=== PATIENT | male | born 1940 | race Caucasian/White ===

== ENCOUNTER 2021-04-30 15:24 | Inpatient (IN) | payer BC, MEDICARE ==
[2021-04-30] MEDS ORDERED: Nitroglycerin 0.4 MG TAB (25 Tab Bottle) SL PRN (15:48)
[2021-04-30] MEDS ORDERED: Dextrose 50% Abboject 50 ML SYRINGE SLOW IVP PRN (15:51)
[2021-04-30] MEDS ORDERED: Insulin Regular 300 UNITS/3 ML VIAL SC PRN ×2 (15:51)
[2021-04-30] MEDS ORDERED: Dextrose 5% in Water 1,000 ML IV PRN (15:51)
[2021-04-30] MEDS ORDERED: Bisacodyl 10 MG SUPP PR PRN (15:53)
[2021-04-30] MEDS ORDERED: Calcium Carbonate 500 MG ChewTAB PO PRN (15:53)
[2021-04-30] MEDS ORDERED: Senokot S 8.6-50 MG TAB PO PRN (15:53)
[2021-04-30] MEDS ORDERED: Ondansetron ODT 4 MG TAB PO PRN (15:53)
[2021-04-30] MEDS ORDERED: Ondansetron PF 4 MG/2 ML Vial IVP PRN (15:53)
[2021-04-30] MEDS ORDERED: Acetaminophen 325 MG TAB PO PRN (15:53)
[2021-04-30] MEDS ORDERED: Morphine 4 MG/ML VIAL SLOW IVP PRN (16:03)
[2021-04-30] MEDS ORDERED: Aspirin 325 mg Enteric Coated Tablet PO SCH ×2 (16:30→21:00)
[2021-04-30 16:42] LABS: #Eosinphils 0.1 thou/uL (0.0-0.7); #Lymphocytes 1.5 thou/uL (1.20-3.40); #Monocytes 0.8 thou/uL (0.11-0.59); #Neutrophils 5.1 thou/uL (1.40-6.50); %Basophils 0.2 % (0.0-1.0); %Eosinophils 1.9 % (0.0-10.0); %Lymphocytes 20.3 % (21.0-51.0); %Monocytes 10.1 % (0.0-10.0); %Neutrophils 67.5 % (42.0-75.0); Hemoglobin 14.3 g/dL (14.0-18.0); Mean Corpuscular Hemoglobin 32.7 pg (27.0-31.0); Mean Corpuscular Volume 93.3 fL (78.0-98.0); Mean Platelet Volume 7.3 fL (7.4-10.4); Platelet Count 226 thou/uL (130-400); RBC Distribution Width 13.2 % (11.5-14.5); Red Blood Cell (RBC) Count 4.39 mill/uL (4.70-6.10); White Blood Cell (WBC) Count 7.6 thou/uL (4.8-10.8)
[2021-04-30] MEDS ORDERED: Communication Order-Pharmacy FS SCH (16:45)
[2021-04-30 17:01] LABS: ALT (SGPT) 8 U/L (8-55); AST (SGOT) 13 U/L (5-34); Alkaline Phosphatase 52 U/L (40-110); Anion Gap 14 mmol/L (10-20); BUN (Urea Nitrogen) 19 mg/dL (8.4-25.7); Bilirubin, Total 0.3 mg/dL (0.2-1.2); Calc. Creatinine Clearance 0 mL/min (70-130); Calcium 8.9 mg/dL (7.8-10.44); Carbon Dioxide 23 mmol/L (23-31); Chloride 105 mmol/L (98-107); Globulin 3.1 g/dL (2.4-3.5); Glucose 105 mg/dL (83-110); Magnesium 1.9 mg/dL (1.6-2.6); Potassium 4.4 mmol/L (3.5-5.1); Protein, Total 7.1 g/dL (5.8-8.1); Sodium 138 mmol/L (136-145)
[2021-04-30 17:05] LABS: Troponin I 0.032 ng/mL (< 0.028)
[2021-04-30] MEDS ORDERED: Magnesium Sulfate 2 GM in Sodium Chloride 0.9% 100 ML IVPB SCH (17:15)
[2021-04-30] MEDS ORDERED: Magnesium 2 GM/50 ML 2 GM in Premix Bag 1 BAG IVPB SCH (17:30)
[2021-04-30] MEDS ORDERED: Enoxaparin Sodium 120 MG/0.8 ML SYRINGE SC SCH (17:45)
[2021-04-30] MEDS: Nitroglycerin 2% Ointment 1 INCH/1 GM Packet TOP SCH ×2 (20:43→23:34)
[2021-04-30] MEDS: Atorvastatin Calcium 40 MG TAB PO SCH (20:48)
[2021-04-30] MEDS: Famotidine 20 MG TAB PO SCH (20:48)
[2021-05-01 05:01] LABS: #Eosinphils 0.2 thou/uL (0.0-0.7); #Monocytes 0.8 thou/uL (0.11-0.59); #Neutrophils 4.2 thou/uL (1.40-6.50); %Basophils 0.6 % (0.0-1.0); %Eosinophils 2.6 % (0.0-10.0); %Monocytes 11.3 % (0.0-10.0); %Neutrophils 57.5 % (42.0-75.0); Hemoglobin 13.7 g/dL (14.0-18.0); Mean Corpuscular HGB CONC 34.2 g/dL (32.0-36.0); Mean Corpuscular Hemoglobin 32.3 pg (27.0-31.0); Mean Corpuscular Volume 94.3 fL (78.0-98.0); Mean Platelet Volume 7.4 fL (7.4-10.4); Platelet Count 211 thou/uL (130-400); RBC Distribution Width 13.2 % (11.5-14.5); Red Blood Cell (RBC) Count 4.24 mill/uL (4.70-6.10); White Blood Cell (WBC) Count 7.3 thou/uL (4.8-10.8)
[2021-05-01 05:23] LABS: Anion Gap 14 mmol/L (10-20); BUN (Urea Nitrogen) 20 mg/dL (8.4-25.7); Calc. Creatinine Clearance 105 mL/min (70-130); Calcium 8.9 mg/dL (7.8-10.44); Carbon Dioxide 24 mmol/L (23-31); Cardiac Risk 4.8 (Less than 4.5); Chloride 105 mmol/L (98-107); Cholesterol 162 mg/dl (< 200 Desired); Glucose 111 mg/dL (83-110); HDL Cholesterol 34 mg/dL (>60 Neg Risk); Potassium 4.2 mmol/L (3.5-5.1); Sodium 139 mmol/L (136-145)
[2021-05-01 05:34] LABS: LDL Cholesterol, Calculated 76 mg/dL
[2021-05-01] MEDS: Famotidine 20 MG TAB PO SCH (05:49)
[2021-05-01] MEDS: Nitroglycerin 2% Ointment 1 INCH/1 GM Packet TOP SCH (05:50)
[2021-05-01 05:51] LABS: Triglycerides 238 mg/dL (Less than 150)
[2021-05-01] MEDS ORDERED: Lidocaine 1% (PF) 30 ML VIAL ONE (06:47)
[2021-05-01] MEDS ORDERED: Midazolam HCl 2 mg/2 ml Vial ONE (07:57)
[2021-05-01] MEDS ORDERED: Fentanyl 100 MCG/2 ML VIAL ONE (07:57)
[2021-05-01] MEDS ORDERED: Fentanyl 250 MCG/5 ML VIAL ONE (08:27)
[2021-05-01] MEDS ORDERED: Midazolam HCl 5 mg/5 ml Vial ONE (08:27)
[2021-05-01] MEDS ORDERED: Ketamine 50 MG/ML (10ML VIAL) ONE (08:45)
[2021-05-01] MEDS ORDERED: PROPOFOL 200 MG/20 ML VIAL ONE (09:00)
[2021-05-01] MEDS ORDERED: Sodium Bicarb 50 MEQ/50 ML VIAL ONE (09:00)
[2021-05-01] MEDS ORDERED: Calcium Chloride 1 GM/10 ML Abboject SYRINGE ONE ×2 (09:00→09:16)
[2021-05-01] MEDS ORDERED: Cardioplegic Soln 1,000 ML BAG ONE ×2 (09:00→09:16)
[2021-05-01] MEDS ORDERED: Labetalol HCl 100 MG/20 ML VIAL ONE (09:00)
[2021-05-01] MEDS ORDERED: Ondansetron PF 4 MG/2 ML Vial ONE (09:00)
[2021-05-01] MEDS ORDERED: Papaverine 60 MG/2 ML VIAL ONE ×2 (09:00→09:16)
[2021-05-01] MEDS ORDERED: Thrombin 5000 UNITS/5 ML VIAL ONE ×2 (09:00→09:16)
[2021-05-01] MEDS ORDERED: Aspirin 325 mg Enteric Coated Tablet PO SCH (09:00)
[2021-05-01] MEDS ORDERED: Heparin 5,000 UNITS/ML VIAL ONE ×2 (09:00→09:16)
[2021-05-01] MEDS ORDERED: Heparin 10,000 UNITS/ 10 ML VIAL ONE (09:00)
[2021-05-01] MEDS ORDERED: Aminocaproic Acid 5 GM/20 ML VIAL ONE ×2 (09:00→09:16)
[2021-05-01] MEDS ORDERED: Vecuronium 10 MG VIAL ONE (09:00)
[2021-05-01 09:04] LABS: Hemoglobin A1c 6.1 % (4.0-6.0)
[2021-05-01] MEDS ORDERED: Sodium Bicarb 50 MEQ/50 ML Abboject 8.4% SYRINGE ONE (09:16)
[2021-05-01] MEDS ORDERED: Heparin 30,000 units/30 ml VIAL ONE (09:16)
[2021-05-01] MEDS ORDERED: Lidocaine 2% PF 100 mg/5 ml Syringe ONE (09:16)
[2021-05-01] MEDS ORDERED: Protamine Sulfate 250 MG/25 ML VIAL ONE (09:16)
[2021-05-01] MEDS ORDERED: Magnesium Sulfate 1 GM/2 ML VIAL ONE (09:16)
[2021-05-01] MEDS ORDERED: Potassium Chloride 60 MEQ/30 ML VIAL ONE (09:16)
[2021-05-01] MEDS ORDERED: Phenylephrine 10 MG/ML VIAL ONE (10:38)
[2021-05-01] MEDS ORDERED: PHENYLEPHRINE-NS 100 MCG/ML 10 ML SYRINGE ONE (10:39)
[2021-05-01 11:28] LABS: SARS-CoV-2 PCR by NAA Not Detected (NotDetected)
[2021-05-01] MEDS ORDERED: Insulin Regular 300 UNITS/3 ML VIAL ONE (11:33)
[2021-05-01 13:24] LABS: Actual Bicarbonate (HCO3a) 24.2 mEq/L (22-28); Base Excess (BEa) -2.1 mEq/L (-2.0 to +3.0); CO2 Tension 47.8 mmHg (35.0-45.0); Calcium, Ionized (arterial) 1.11 mmol/L (1.12-1.30); Carboxyhemoglobin (COHb) 0.8 gm% (0.0-3.0); Hemoglobin (Hb) 12.6 g/dL (14.0-18.0); O2 Tension (PaO2), arterial 105.9 mmHg (> 60.0); Potassium - ABG Lab 4.23 mmol/L (3.70-5.30); pH, Arterial 7.32 (7.35-7.45)
[2021-05-01 13:26] LABS: Puncture Site Arterial Line
[2021-05-01] MEDS ORDERED: Ondansetron PF 4 MG/2 ML Vial IVP PRN (13:31)
[2021-05-01] MEDS ORDERED: Fentanyl 100 MCG/2 ML VIAL SLOW IVP PRN (13:31)
[2021-05-01] MEDS ORDERED: Guaifenesin DM 100-10/5 ML UDCUP PO PRN (13:31)
[2021-05-01] MEDS ORDERED: Nitroglycerin 50 MG/250 ML BOT 250 ML IVPB PRN (13:31)
[2021-05-01] MEDS ORDERED: hydrALAZINE 20 MG/ML VIAL SLOW IVP PRN (13:31)
[2021-05-01] MEDS ORDERED: Acetaminophen 325 MG TAB PO PRN (13:31)
[2021-05-01] MEDS ORDERED: Post-Op Insulin Drip Protocol IVPB ONE (13:31)
[2021-05-01] MEDS ORDERED: niCARdipine 25 MG in Sodium Chloride 0.9% 250 ML 250 ML IVPB PRN (13:31)
[2021-05-01] MEDS ORDERED: Potassium Chloride 20 MEQ/100 ML PREMIX BAG IVPB PRN (13:31)
[2021-05-01] MEDS ORDERED: Hetastarch 6% 500 ML 500 ML IVPB PRN (13:31)
[2021-05-01] MEDS ORDERED: Norepinephrine 8 MG/0.9% NS 250 ML IVPB PRN (13:31)
[2021-05-01] MEDS ORDERED: Promethazine HCl 25 MG/ML VIAL IM PRN (13:31)
[2021-05-01] MEDS ORDERED: DOPamine 400 MG/D5W 250 ML 250 ML IVPB PRN (13:31)
[2021-05-01] MEDS ORDERED: Bisacodyl 10 MG SUPP PR PRN (13:31)
[2021-05-01] MEDS ORDERED: Mag-Al 1200 mg/1200 mg/30 ML UDCUP PO PRN (13:31)
[2021-05-01] MEDS ORDERED: Albumin 5% 250 ML ONE (13:36)
[2021-05-01 13:44] LABS: #Eosinphils 0.1 thou/uL (0.0-0.7); #Lymphocytes 1.7 thou/uL (1.20-3.40); #Monocytes 1.5 thou/uL (0.11-0.59); #Neutrophils 12.3 thou/uL (1.40-6.50); %Basophils 0.2 % (0.0-1.0); %Eosinophils 0.9 % (0.0-10.0); %Lymphocytes 11.1 % (21.0-51.0); %Monocytes 9.7 % (0.0-10.0); %Neutrophils 78.2 % (42.0-75.0); Hemoglobin 12.8 g/dL (14.0-18.0); Mean Corpuscular HGB CONC 33.7 g/dL (32.0-36.0); Mean Corpuscular Hemoglobin 31.9 pg (27.0-31.0); Mean Corpuscular Volume 94.8 fL (78.0-98.0); Mean Platelet Volume 7.3 fL (7.4-10.4); Platelet Count 190 thou/uL (130-400); RBC Distribution Width 13.3 % (11.5-14.5); White Blood Cell (WBC) Count 15.7 thou/uL (4.8-10.8)
[2021-05-01] MEDS ORDERED: HUMULIN R 100 UNITS in Sodium Chloride 0.9% 100 ML IVPB SCH (13:45)
[2021-05-01] MEDS ORDERED: Dextrose 5% in Water 1,000 ML IV PRN (13:45)
[2021-05-01] MEDS ORDERED: Dextrose 50% Abboject 50 ML SYRINGE SLOW IVP PRN (13:45)
[2021-05-01] MEDS ORDERED: Morphine 4 MG/ML VIAL SLOW IVP PRN (13:49)
[2021-05-01 13:55] LABS: INR-International Normal Ratio 1.2; PTT 29.7 sec (22.9-36.1); Prothrombin Time 15.3 sec (12.0-14.7)
[2021-05-01 14:07] LABS: Anion Gap 14 mmol/L (10-20); BUN (Urea Nitrogen) 16 mg/dL (8.4-25.7); Calc. Creatinine Clearance 116 mL/min (70-130); Calcium 8.2 mg/dL (7.8-10.44); Carbon Dioxide 22 mmol/L (23-31); Chloride 107 mmol/L (98-107); Glucose 125 mg/dL (83-110); Potassium 4.7 mmol/L (3.5-5.1); Sodium 138 mmol/L (136-145)
[2021-05-01] MEDS: Lactated Ringer's 1,000 ML IV SCH ×2 (14:54→23:59)
[2021-05-01 15:16] LABS: Actual Bicarbonate (HCO3a) 24.7 mEq/L (22-28); Base Excess (BEa) -2.3 mEq/L (-2.0 to +3.0); CO2 Tension 51.3 mmHg (35.0-45.0); Calcium, Ionized (arterial) 1.15 mmol/L (1.12-1.30); Carboxyhemoglobin (COHb) 0.6 gm% (0.0-3.0); Hemoglobin (Hb) 13.6 g/dL (14.0-18.0); O2 Tension (PaO2), arterial 121.4 mmHg (> 60.0); Potassium - ABG Lab 4.27 mmol/L (3.70-5.30)
[2021-05-01 15:18] LABS: ALV-art Gradient 99.675 mmHg (0-20); Puncture Site Arterial Line
[2021-05-01] MEDS: Fentanyl 100 MCG/2 ML VIAL SLOW IVP PRN (17:29)
[2021-05-01] MEDS: ceFAZolin Sodium/D5W 2 GM in Premix Bag 1 BAG IVPB SCH (18:27)
[2021-05-01 19:28] LABS: Hemoglobin 12.7 g/dL (14.0-18.0)
[2021-05-01 19:42] LABS: Potassium 4.9 mmol/L (3.5-5.1)
[2021-05-01] MEDS: Atorvastatin Calcium 40 MG TAB PO SCH (20:44)
[2021-05-01] MEDS: Famotidine/PF 20 mg/2ml Vial SLOW IVP SCH (20:44)
[2021-05-01] MEDS: HYDROcodone/Acetaminophen 5/325 mg Tablet PO PRN (20:45)
[2021-05-01] MEDS: Insulin Regular 300 UNITS/3 ML VIAL SC PRN (23:58)
[2021-05-02 04:12] LABS: #Lymphocytes 1.4 thou/uL (1.20-3.40); #Monocytes 1.4 thou/uL (0.11-0.59); #Neutrophils 8.5 thou/uL (1.40-6.50); %Basophils 0.4 % (0.0-1.0); %Eosinophils 0.1 % (0.0-10.0); %Lymphocytes 12.2 % (21.0-51.0); %Monocytes 12.7 % (0.0-10.0); %Neutrophils 74.5 % (42.0-75.0); Hemoglobin 12.6 g/dL (14.0-18.0); Mean Corpuscular HGB CONC 33.2 g/dL (32.0-36.0); Mean Corpuscular Hemoglobin 31.9 pg (27.0-31.0); Mean Corpuscular Volume 96.2 fL (78.0-98.0); Mean Platelet Volume 7.3 fL (7.4-10.4); Platelet Count 193 thou/uL (130-400); RBC Distribution Width 13.5 % (11.5-14.5); Red Blood Cell (RBC) Count 3.94 mill/uL (4.70-6.10); White Blood Cell (WBC) Count 11.3 thou/uL (4.8-10.8)
[2021-05-02 04:31] LABS: Anion Gap 10 mmol/L (10-20); BUN (Urea Nitrogen) 13 mg/dL (8.4-25.7); Calc. Creatinine Clearance 120 mL/min (70-130); Calcium 8.1 mg/dL (7.8-10.44); Carbon Dioxide 28 mmol/L (23-31); Chloride 104 mmol/L (98-107); Glucose 140 mg/dL (83-110); Potassium 4.5 mmol/L (3.5-5.1); Sodium 137 mmol/L (136-145)
[2021-05-02] MEDS: Insulin Regular 300 UNITS/3 ML VIAL SC PRN (04:41)
[2021-05-02] MEDS: Fentanyl 100 MCG/2 ML VIAL SLOW IVP PRN (04:43)
[2021-05-02] MEDS ORDERED: Dextrose 50% Abboject 50 ML SYRINGE SLOW IVP PRN (08:28)
[2021-05-02] MEDS ORDERED: HumaLOG 300 UNITS/3 ML VIAL SC PRN (08:28)
[2021-05-02] MEDS ORDERED: Dextrose 5% in Water 1,000 ML IV PRN (08:28)
[2021-05-02] MEDS: Aspirin 325 MG TAB PO SCH (09:43)
[2021-05-02] MEDS: Famotidine/PF 20 mg/2ml Vial SLOW IVP SCH ×2 (09:43→20:53)
[2021-05-02] MEDS: ceFAZolin Sodium/D5W 2 GM in Premix Bag 1 BAG IVPB SCH ×2 (09:43)
[2021-05-02] MEDS: HYDROcodone/Acetaminophen 5/325 mg Tablet PO PRN ×4 (10:47→20:53)
[2021-05-02] MEDS: Enoxaparin Sodium 40 MG/0.4 ML SYRINGE SC SCH (20:53)
[2021-05-02] MEDS: Atorvastatin Calcium 40 MG TAB PO SCH (20:54)
[2021-05-03 04:30] LABS: #Eosinphils 0.1 thou/uL (0.0-0.7); #Lymphocytes 1.4 thou/uL (1.20-3.40); #Monocytes 1.5 thou/uL (0.11-0.59); %Basophils 0.1 % (0.0-1.0); %Eosinophils 0.6 % (0.0-10.0); %Lymphocytes 12.9 % (21.0-51.0); %Monocytes 13.3 % (0.0-10.0); %Neutrophils 73.2 % (42.0-75.0); Hemoglobin 11.3 g/dL (14.0-18.0); Mean Corpuscular Hemoglobin 31.6 pg (27.0-31.0); Mean Platelet Volume 8.2 fL (7.4-10.4); Platelet Count 162 thou/uL (130-400); RBC Distribution Width 13.5 % (11.5-14.5); Red Blood Cell (RBC) Count 3.57 mill/uL (4.70-6.10); White Blood Cell (WBC) Count 10.9 thou/uL (4.8-10.8)
[2021-05-03 04:57] LABS: Anion Gap 10 mmol/L (10-20); BUN (Urea Nitrogen) 11 mg/dL (8.4-25.7); Calc. Creatinine Clearance 133 mL/min (70-130); Calcium 8.4 mg/dL (7.8-10.44); Carbon Dioxide 28 mmol/L (23-31); Chloride 101 mmol/L (98-107); Glucose 124 mg/dL (83-110); Magnesium 1.8 mg/dL (1.6-2.6); Sodium 135 mmol/L (136-145)
[2021-05-03] MEDS ORDERED: Diltiazem 125 MG in Sodium Chloride 0.9% 100 ML IVPB SCH (07:30)
[2021-05-03] MEDS ORDERED: Digoxin 0.5 MG/2 ML AMP ONE (07:58)
[2021-05-03] MEDS ORDERED: Magnesium 2 GM/50 ML 2 GM in Premix Bag 1 BAG IVPB SCH (08:00)
[2021-05-03] MEDS: Aspirin 325 MG TAB PO SCH (08:06)
[2021-05-03] MEDS: Clopidogrel Bisulfate 75 MG TAB PO SCH (08:06)
[2021-05-03] MEDS ORDERED: Aspirin 325 MG TAB PO SCH (09:31)
[2021-05-03] MEDS ORDERED: Amiodarone 150 MG, Admixture Fee 1 EACH in Dextrose 5% in Water 100 ML IVPB SCH (10:00)
[2021-05-03] MEDS ORDERED: Aspirin Chewable 81 MG TAB PO SCH (10:00)
[2021-05-03] MEDS: Amiodarone 450 MG, Admixture Fee 1 EACH in Dextrose 5% in Water 250 ML IVPB SCH ×2 (10:52→21:23)
[2021-05-03] MEDS: HYDROcodone/Acetaminophen 5/325 mg Tablet PO PRN ×2 (12:24→17:51)
[2021-05-03] MEDS ORDERED: Metoprolol Tartrate 5 MG/5 ML VIAL IVP SCH (13:30)
[2021-05-03] MEDS ORDERED: Flecainide 50 MG TAB PO SCH (19:15)
[2021-05-03] MEDS: Atorvastatin Calcium 40 MG TAB PO SCH (21:23)
[2021-05-03] MEDS: Enoxaparin Sodium 40 MG/0.4 ML SYRINGE SC SCH (21:23)
[2021-05-04] MEDS: HYDROcodone/Acetaminophen 5/325 mg Tablet PO PRN ×3 (04:00→20:16)
[2021-05-04 04:19] LABS: #Eosinphils 0.2 thou/uL (0.0-0.7); #Lymphocytes 1.9 thou/uL (1.20-3.40); #Monocytes 1.5 thou/uL (0.11-0.59); #Neutrophils 7.8 thou/uL (1.40-6.50); %Basophils 0.4 % (0.0-1.0); %Eosinophils 1.7 % (0.0-10.0); %Lymphocytes 16.8 % (21.0-51.0); %Monocytes 12.9 % (0.0-10.0); %Neutrophils 68.2 % (42.0-75.0); Hemoglobin 11.6 g/dL (14.0-18.0); Mean Corpuscular HGB CONC 33.8 g/dL (32.0-36.0); Mean Corpuscular Hemoglobin 32.1 pg (27.0-31.0); Mean Corpuscular Volume 95.1 fL (78.0-98.0); Mean Platelet Volume 7.2 fL (7.4-10.4); Platelet Count 202 thou/uL (130-400); RBC Distribution Width 13.1 % (11.5-14.5); Red Blood Cell (RBC) Count 3.61 mill/uL (4.70-6.10); White Blood Cell (WBC) Count 11.5 thou/uL (4.8-10.8)
[2021-05-04 04:42] LABS: Anion Gap 11 mmol/L (10-20); BUN (Urea Nitrogen) 13 mg/dL (8.4-25.7); Calc. Creatinine Clearance 116 mL/min (70-130); Calcium 8.7 mg/dL (7.8-10.44); Carbon Dioxide 28 mmol/L (23-31); Chloride 99 mmol/L (98-107); Glucose 134 mg/dL (83-110); Potassium 3.9 mmol/L (3.5-5.1); Sodium 134 mmol/L (136-145)
[2021-05-04] MEDS: Amiodarone 450 MG, Admixture Fee 1 EACH in Dextrose 5% in Water 250 ML IVPB SCH ×2 (08:00→20:17)
[2021-05-04] MEDS ORDERED: Potassium Chloride 20 MEQ TAB PO SCH (08:30)
[2021-05-04] MEDS ORDERED: PROPOFOL 20 ML ONE (09:00)
[2021-05-04] MEDS ORDERED: PROPOFOL 200 MG/20 ML VIAL ONE (09:30)
[2021-05-04] MEDS ORDERED: Midazolam HCl 2 mg/2 ml Vial ONE (09:30)
[2021-05-04] MEDS: Aspirin Chewable 81 MG TAB PO SCH (10:52)
[2021-05-04] MEDS: Clopidogrel Bisulfate 75 MG TAB PO SCH (10:52)
[2021-05-04] MEDS: Famotidine/PF 20 mg/2ml Vial SLOW IVP SCH (10:55)
[2021-05-04] MEDS ORDERED: Nitroglycerin 0.4 MG TAB (25 Tab Bottle) SL PRN (18:43)
[2021-05-04] MEDS ORDERED: Dextrose 5% in Water 1,000 ML IV PRN (19:00)
[2021-05-04] MEDS ORDERED: Insulin Regular 300 UNITS/3 ML VIAL SC PRN (19:00)
[2021-05-04] MEDS ORDERED: Dextrose 50% Abboject 50 ML SYRINGE SLOW IVP PRN (19:00)
[2021-05-04] MEDS: Enoxaparin Sodium 40 MG/0.4 ML SYRINGE SC SCH (20:17)
[2021-05-04] MEDS: Atorvastatin Calcium 40 MG TAB PO SCH (20:17)
[2021-05-04] MEDS: Famotidine 20 MG TAB PO SCH (20:17)
[2021-05-05] MEDS: Bisacodyl 5 MG TAB PO PRN (08:11)
[2021-05-05] MEDS: Famotidine 20 MG TAB PO SCH ×2 (08:11→20:50)
[2021-05-05] MEDS: Aspirin Chewable 81 MG TAB PO SCH (08:11)
[2021-05-05] MEDS: Furosemide 40 MG TAB PO SCH (08:11)
[2021-05-05] MEDS: Clopidogrel Bisulfate 75 MG TAB PO SCH (08:11)
[2021-05-05] MEDS: Potassium Chloride 10 MEQ TAB PO SCH (08:12)
[2021-05-05] MEDS ORDERED: Amiodarone 200 MG TAB PO SCH (10:30)
[2021-05-05 12:53] LABS: Actual Bicarbonate (HCO3a) 22.5 mEq/L (22-28); Analyzer IN Cardio OR; Base Excess (BEa) -2.5 mEq/L (-2.0 to +3.0); CO2 Tension 39.8 mmHg (35.0-45.0); Calcium, Ionized (arterial) 1.16 mmol/L (1.12-1.30); Carboxyhemoglobin (COHb) 0.5 gm% (0.0-3.0); Hemoglobin (Hb) 12.2 g/dL (14.0-18.0); O2 Tension (PaO2), arterial 355.1 mmHg (> 60.0); Potassium - ABG Lab 4.62 mmol/L (3.70-5.30); pH, Arterial 7.37 (7.35-7.45)
[2021-05-05 12:54] LABS: Actual Bicarbonate (HCO3a) 24.4 mEq/L (22-28); Analyzer IN Cardio OR; Base Excess (BEa) -0.8 mEq/L (-2.0 to +3.0); CO2 Tension 42.4 mmHg (35.0-45.0); Carboxyhemoglobin (COHb) 0.3 gm% (0.0-3.0); Hemoglobin (Hb) 10.8 g/dL (14.0-18.0); O2 Tension (PaO2), arterial 277.3 mmHg (> 60.0); Potassium - ABG Lab 5.14 mmol/L (3.70-5.30); pH, Arterial 7.38 (7.35-7.45)
[2021-05-05 12:54] LABS: Actual Bicarbonate (HCO3a) 24.1 mEq/L (22-28); Analyzer IN Cardio OR; Base Excess (BEa) -0.8 mEq/L (-2.0 to +3.0); CO2 Tension 40.8 mmHg (35.0-45.0); Calcium, Ionized (arterial) 0.97 mmol/L (1.12-1.30); Carboxyhemoglobin (COHb) 0.8 gm% (0.0-3.0); O2 Tension (PaO2), arterial 401.5 mmHg (> 60.0); Potassium - ABG Lab 6.25 mmol/L (3.70-5.30); pH, Arterial 7.39 (7.35-7.45)
[2021-05-05 12:55] LABS: Actual Bicarbonate (HCO3a) 24.7 mEq/L (22-28); Analyzer IN Cardio OR; CO2 Tension 40.3 mmHg (35.0-45.0); Calcium, Ionized (arterial) 0.97 mmol/L (1.12-1.30); Carboxyhemoglobin (COHb) 0.7 gm% (0.0-3.0); Hemoglobin (Hb) 11.2 g/dL (14.0-18.0); O2 Tension (PaO2), arterial 392.6 mmHg (> 60.0); Potassium - ABG Lab 5.94 mmol/L (3.70-5.30); pH, Arterial 7.41 (7.35-7.45)
[2021-05-05 12:56] LABS: Actual Bicarbonate (HCO3a) 22.6 mEq/L (22-28); Analyzer IN Cardio OR; Base Excess (BEa) -4.1 mEq/L (-2.0 to +3.0); CO2 Tension 47.8 mmHg (35.0-45.0); Calcium, Ionized (arterial) 1.05 mmol/L (1.12-1.30); Carboxyhemoglobin (COHb) 0.6 gm% (0.0-3.0); Hemoglobin (Hb) 12.8 g/dL (14.0-18.0); O2 Tension (PaO2), arterial 124.4 mmHg (> 60.0); Potassium - ABG Lab 4.59 mmol/L (3.70-5.30); pH, Arterial 7.29 (7.35-7.45)
[2021-05-05 12:57] LABS: Actual Bicarbonate (HCO3a) 21.6 mEq/L (22-28); Analyzer IN Cardio OR; Base Excess (BEa) -4.4 mEq/L (-2.0 to +3.0); CO2 Tension 43.2 mmHg (35.0-45.0); Calcium, Ionized (arterial) 1.14 mmol/L (1.12-1.30); Carboxyhemoglobin (COHb) 0.9 gm% (0.0-3.0); Hemoglobin (Hb) 13.6 g/dL (14.0-18.0); O2 Tension (PaO2), arterial 83.7 mmHg (> 60.0); Potassium - ABG Lab 4.24 mmol/L (3.70-5.30); pH, Arterial 7.32 (7.35-7.45)
[2021-05-05 12:58] LABS: Puncture Site Arterial Line
[2021-05-05 12:59] LABS: Puncture Site Arterial Line
[2021-05-05 12:59] LABS: Puncture Site Arterial Line
[2021-05-05] MEDS: Enoxaparin Sodium 40 MG/0.4 ML SYRINGE SC SCH (20:50)
[2021-05-05] MEDS: Atorvastatin Calcium 40 MG TAB PO SCH (20:50)
[2021-05-05] MEDS: Amiodarone 200 MG TAB PO SCH (20:50)
[2021-05-06 07:21] LABS: Puncture Site Arterial Line
[2021-05-06 07:22] LABS: Puncture Site Arterial Line
[2021-05-06 07:22] LABS: Puncture Site Arterial Line
[2021-05-06] MEDS ORDERED: Polyethylene Glycol 3350 17 GM Packet PO PRN (08:22)
[2021-05-06] MEDS: Clopidogrel Bisulfate 75 MG TAB PO SCH (08:32)
[2021-05-06] MEDS: Potassium Chloride 10 MEQ TAB PO SCH (08:32)
[2021-05-06] MEDS: Famotidine 20 MG TAB PO SCH ×2 (08:32→20:29)
[2021-05-06] MEDS: Furosemide 40 MG TAB PO SCH (08:32)
[2021-05-06] MEDS: Amiodarone 200 MG TAB PO SCH ×2 (08:32→20:28)
[2021-05-06] MEDS: Aspirin Chewable 81 MG TAB PO SCH (08:32)
[2021-05-06] MEDS: Bisacodyl 5 MG TAB PO PRN (08:33)
[2021-05-06] MEDS: Lisinopril 5 MG TAB PO SCH (09:31)
[2021-05-06] MEDS: Atorvastatin Calcium 40 MG TAB PO SCH (20:28)
[2021-05-06] MEDS: Enoxaparin Sodium 40 MG/0.4 ML SYRINGE SC SCH (20:29)
[2021-05-07 08:08] VITALS: TEMP 98.2
[2021-05-07] MEDS: Famotidine 20 MG TAB PO SCH (09:20)
[2021-05-07] MEDS: Furosemide 40 MG TAB PO SCH (09:20)
[2021-05-07] MEDS: Aspirin Chewable 81 MG TAB PO SCH (09:20)
[2021-05-07] MEDS: Potassium Chloride 10 MEQ TAB PO SCH (09:21)
[2021-05-07] MEDS: Clopidogrel Bisulfate 75 MG TAB PO SCH (09:21)
[2021-05-07] MEDS: Lisinopril 5 MG TAB PO SCH (09:22)
[2021-05-07] MEDS ORDERED: Amiodarone 200 MG TAB PO SCH (09:45)
[2021-05-07 12:27] VITALS: BP 143/93
[2021-05-08] MEDS ORDERED: Amiodarone 200 MG TAB PO SCH (09:00)
== END 2021-05-07 13:34 | disposition home or self-care (01) | DRG 234 ==
LOC: ERS 15:24 → 2NO 15:40 → CCU 05-01 08:00
PROVIDERS: ADMIT Internal Medicine; ATTEND Internal Medicine
PROC: 4A023N7 Measurement of Cardiac Sampling and Pressure, Left Heart, Percutaneous Approach (ICD-10-PCS; principal; 2021-05-01)
PROC: 02100Z9 Bypass Coronary Artery, One Artery from Left Internal Mammary, Open Approach (ICD-10-PCS; 2021-05-01)
PROC: 021209W Bypass Coronary Artery, Three Arteries from Aorta with Autologous Venous Tissue, Open Approach (ICD-10-PCS; 2021-05-01)
PROC: 06BQ4ZZ Excision of Left Saphenous Vein, Percutaneous Endoscopic Approach (ICD-10-PCS; 2021-05-01)
PROC: B2111ZZ Fluoroscopy of Multiple Coronary Arteries using Low Osmolar Contrast (ICD-10-PCS; 2021-05-01)
PROC: B2151ZZ Fluoroscopy of Left Heart using Low Osmolar Contrast (ICD-10-PCS; 2021-05-01)
PROC: 4A033BC Measurement of Arterial Pressure, Coronary, Percutaneous Approach (ICD-10-PCS; 2021-05-01)
PROC: 5A1221Z Performance of Cardiac Output, Continuous (ICD-10-PCS; 2021-05-01)
PROC: 02L70ZK Occlusion of Left Atrial Appendage, Open Approach (ICD-10-PCS; 2021-05-01)
PROC: 5A2204Z Restoration of Cardiac Rhythm, Single (ICD-10-PCS; 2021-05-04)
DX: I21.4 Non-ST elevation (NSTEMI) myocardial infarction (principal); I48.92 Unspecified atrial flutter; I25.110 Atherosclerotic heart disease of native coronary artery with unstable angina pectoris; Z20.822 Contact with and (suspected) exposure to COVID-19; F17.210 Nicotine dependence, cigarettes, uncomplicated; E66.01 Morbid (severe) obesity due to excess calories; I48.0 Paroxysmal atrial fibrillation; E83.42 Hypomagnesemia; I12.9 Hypertensive chronic kidney disease with stage 1 through stage 4 chronic kidney disease, or unspecified chronic kidney disease; E78.5 Hyperlipidemia, unspecified; N18.9 Chronic kidney disease, unspecified; E11.22 Type 2 diabetes mellitus with diabetic chronic kidney disease; K21.9 Gastro-esophageal reflux disease without esophagitis; F41.9 Anxiety disorder, unspecified; F51.04 Psychophysiologic insomnia; E87.6 Hypokalemia; I25.5 Ischemic cardiomyopathy; J44.9 Chronic obstructive pulmonary disease, unspecified; G47.33 Obstructive sleep apnea (adult) (pediatric); Z82.49 Family history of ischemic heart disease and other diseases of the circulatory system; Z68.39 Body mass index [BMI] 39.0-39.9, adult; Z79.82 Long term (current) use of aspirin; Z79.51 Long term (current) use of inhaled steroids; Z79.52 Long term (current) use of systemic steroids; Z79.899 Other long term (current) drug therapy
CPT/HCPCS: 36415; 36416; 36430; 71045; 80048; 80053; 80061; 82805; 83036; 83735; 84484; 85025; 85610; 85730; 86850; 86900; 86901; 93005; 93010; 93306; 93458; 93798; 94002; 94640; 99152; C1713; J0282; J0360; J1160; J1644; J1650; J1815; J2001; J2250; J2270; J2370; J2405; J2440; J2704; J2720; J3010; J3370; J3475; J3480; J3490; J7070; J7120; J7620; P9045; S0017; S0028; U0003; U0005

== ENCOUNTER 2024-12-15 08:31 | Outpatient (CLI) | payer MEDICARE ==
[2024-12-15] MEDS ORDERED: Iopamidol 370 76% 100 ML VIAL ONE (12:15)
== END 2024-12-15 08:32 | disposition home or self-care (01) ==
LOC: CT 08:31
PROVIDERS: ATTEND Nurse Practitioner Family
DX: R91.8 Other nonspecific abnormal finding of lung field (principal)
CPT/HCPCS: 71270; Q9967

== ENCOUNTER 2025-01-09 10:15 | Outpatient (CLI) | payer MEDICARE | END 2025-01-09 10:16 | disposition home or self-care (01) | LOC: PET 10:15 | PROVIDERS: ATTEND Internal Medicine | DX: R91.8 Other nonspecific abnormal finding of lung field (principal); C34.90 Malignant neoplasm of unspecified part of unspecified bronchus or lung; J90 Pleural effusion, not elsewhere classified | CPT/HCPCS: 78815; A9552 ==